=== PATIENT | female | born 1955 | race Caucasian/White ===

== ENCOUNTER 2022-07-19 09:39 | Outpatient (CLI) | payer MEDICARE | END 2022-07-19 09:40 | disposition home or self-care (01) | LOC: SCSRAD 09:39 | PROVIDERS: ATTEND Family Medicine | DX: M25.572 Pain in left ankle and joints of left foot (principal); M25.571 Pain in right ankle and joints of right foot; S82.62XA Displaced fracture of lateral malleolus of left fibula, initial encounter for closed fracture; M79.89 Other specified soft tissue disorders ==

== ENCOUNTER 2023-06-11 09:40 | Outpatient (CLI) | payer MEDICARE | END 2023-06-11 09:41 | disposition home or self-care (01) | LOC: RAD 09:40 | PROVIDERS: ATTEND Internal Medicine Critical Care Medicine | DX: R06.00 Dyspnea, unspecified (principal) | CPT/HCPCS: 71046 ==

== ENCOUNTER 2024-08-10 13:47 | Outpatient (CLI) | payer MEDICARE | END 2024-08-10 13:48 | disposition home or self-care (01) | LOC: SCSRAD 13:47 | PROVIDERS: ATTEND Nurse Practitioner Family | DX: S99.921A Unspecified injury of right foot, initial encounter (principal) ==

== ENCOUNTER 2025-07-18 09:45 | Outpatient (CLI) | payer MEDICARE | END 2025-07-18 09:46 | disposition home or self-care (01) | LOC: RAD 09:45 | PROVIDERS: ATTEND Internal Medicine Critical Care Medicine | DX: R06.00 Dyspnea, unspecified (principal) | CPT/HCPCS: 71046 ==